=== PATIENT | male | born 1980 | race Caucasian/White ===

== ENCOUNTER 2024-06-11 08:13 | Inpatient (IN) | payer OTHER, SELFPAY ==
[2024-06-11] VITALS (17 sets, daily range): BP systolic 83–149; BP diastolic 39–82; PULSE 100–129; RESP 11–18; TEMP 36.8–38.6; O2SAT 92–100; BMI 33.0; BMI 33.1
--- NOTE | 2024-06-11 | ECG_ITS ---
Test Reason : TACHYCARDIA Blood Pressure : / mmHG Vent. Rate : 118 BPM Atrial Rate : 118 BPM P-R Int : 150 ms QRS Dur : 078 ms QT Int : 314 ms P-R-T Axes : 040 042 028 degrees QTc Int : 440 ms Sinus tachycardia Otherwise normal ECG When compared with ECG of 03-JUN-2019 03:25, No significant change was found Referred By: Dolores Talbert Electronically Signed By:LUKAS VALERA MD
--- NOTE | ~2024-06-11 | CT_ITS ---
EXAMINATION: CT HEAD AND FACIAL BONES WITHOUT CONTRAST CLINICAL INFORMATION: Fall and head injury COMPARISON: None TECHNIQUE: Contiguous axial imaging was performed from the skull base to vertex and facial bones without intravenous administration of contrast. This CT examination was performed using dose optimization techniques as appropriate, variously including the following: *Automated exposure control *Adjustment of mA and/or kV according to patient size (this includes techniques or standardized protocols for targeted exams where dose is matched to indication/reason for exam; i.e. extremities or head) *Use of iterative reconstruction technique DLP: 823.37 mGy-cm (CT Head) 366.31 mGy-cm (CT Facial Bones) FINDINGS: There is no evidence of acute intracranial hemorrhage or territorial infarction. No abnormal mass effect or midline shift is seen. Heard to white matter differentiation is well preserved. No extra-axial fluid collections are identified. The ventricles are normal in size. There is no abnormal attenuation within the brain parenchyma.. The osseous structures and soft tissues are normal. The paranasal sinuses are well-aerated. No air-fluid levels are seen. There is slight leftward deviation of the nasal septum. The ostiomeatal complexes are clear. The lamina papyracea are intact. The ethmoid roofs are symmetric. The carotid canals are normally covered by bone. No maxillary periapical disease is seen. The mastoid air cells and visualized middle ear cavities are well-aerated. The orbits are normal. The TMJs are unremarkable. CT/CT cervical spine wo IV con IMPRESSION: 1. No acute intracranial pathology. 2. No acute visible fracture or dislocation. EXAMINATION: Noncontrast CT scan of the cervical spine. INDICATION: Fall COMPARISON: None. TECHNIQUE: Helical, multidetector axial images were obtained from the occiput to the upper thorax. Coronal and sagittal reformats of the cervical spine were provided for interpretation. DLP: 423.55 mGy-cm FINDINGS: No acute fractures or dislocations of the cervical spine are seen. Straightening of the normal cervical curvature. Multilevel degenerative changes. Anatomic alignment and positioning of the vertebral bodies and posterior elements is noted. The atlantoaxial joint and craniovertebral articulations are normal without evidence of subluxation. There is no prevertebral soft tissue swelling. The visualized portions of the lung apices and mediastinum are unremarkable. Radiopaque surgical material right lower neck and region of the thyroid. IMPRESSION: 1. No acute visible fracture or dislocation. 2. Straightening of the normal cervical curvature. 3. Multilevel degenerative changes. Electronically signed by: Augusta Roman MD 06/11/2024 09:47 AM [facility]
--- NOTE | ~2024-06-11 | CT_ITS ---
EXAMINATION: CT ANGIOGRAM CHEST CLINICAL INFORMATION: Syncope. COMPARISON: None available. TECHNIQUE: Multiple axial images were obtained through the chest after the administration of 65 mL of Omnipaque 350 intravenous contrast without reported immediate complications. Extensive vascular post-processing including two-dimensional and three-dimensional reformatted images were created and reviewed on an independent workstation. This CT examination was performed using dose optimization techniques as appropriate, variously including the following: *Automated exposure control *Adjustment of mA and/or kV according to patient size (this includes techniques or standardized protocols for targeted exams where dose is matched to indication/reason for exam; i.e. extremities or head) *Use of iterative reconstruction technique DLP: 354 mGy-cm FINDINGS: No intraluminal filling defects within the main pulmonary artery or its main branches. No aneurysm or dissection, thoracic aorta. Bilateral multifocal patchy and confluent pulmonary groundglass, both lower lobes and lingula. No pleural effusion. No pneumothorax. No bronchiectasis. No honeycombing. Prominent mediastinal lymph nodes. No pericardial effusion. Gynecomastia, bilaterally. No acute fracture or listhesis in the axial skeleton. No lytic or blastic lesions. CT/CT angio chest PE protocol IMPRESSION: Multifocal pneumonia. No acute pulmonary artery emboli. Gynecomastia, bilaterally. Fleischner guidelines were followed. Electronically signed by: Reynaldo Aguero MD 06/11/2024 02:23 PM [facility]
--- NOTE | ~2024-06-11 | XR_ITS ---
EXAMINATION: XR CHEST CLINICAL INFORMATION: Chest pain after trauma COMPARISON: 11/03/2018 TECHNIQUE: 2 views of the chest were obtained. FINDINGS: Elevated left hemidiaphragm with pleural reaction is stable. There is a minor left basilar infiltrate which could reflect an early pneumonia. Lungs otherwise clear. Heart size normal with normal caliber pulmonary vessels. XR/XR chest 2V IMPRESSION: Minor left basilar opacity which could reflect an early pneumonia. Other chronic changes at the left base noted. Electronically signed by: Zen Paul MD 06/11/2024 09:51 AM [facility]
--- NOTE | 2024-06-11 08:35 | ED_ITS ---
HPI - General Adult General Chief complaint: Syncope Stated complaint: Passed out @ work Time Seen by Provider: 06/11/24 08:34 Source: patient Mode of arrival: ambulatory Limitations: no limitations History of Present Illness ED Provider: Dolores Talbert PA-C HPI narrative: 43-year-old male with a PMH of PE, thyroid CA S/p total thyroidectomy and radiation in 2021, on levothyroxine 200 mcg, presents to the ED today with a 4 day history of productive cough, fevers, chills, and multiple syncopal episodes. Today while he was at work he had 2 syncopal episodes. The first syncopal episode he struck his nose on a desk and the second episode he fell to the ground while he was walking. + HS, + LOC. He states that he felt dizzy prior to both episodes. Patient endorses a productive cough with green sputum. He has been feeling progressively more weak and congestion over the past 4 days. His fiance was diagnosed with pneumonia 2 weeks ago and she has completed her course of antibiotics. Denies N/V, abd pain, SOB, or chest pain. Related Data Allergies Allergy/AdvReac Type Severity Reaction Status Date / Time No Known Allergies Allergy Verified 06/11/24 08:24 [No Known Allergies*] Review of Systems 2 Constitutional: Constitutional: Reports chills, Reports fatigue, Reports fever(s), Denies night sweats and Reports weakness Eyes: Eyes: Reports no additional eye complaints, Denies blurry vision, Denies change in vision, Denies diplopia, Denies eye discharge, Denies loss of vision and Denies eye pain ENT: Reports dizziness, Denies nasal congestion and Denies sore throat Cardiovascular: Cardiovascular: Denies chest pain, Reports syncope, Reports lightheadedness and Reports Loss of Consciousness Respiratory: Respiratory: Reports change in phlegm color (green), Reports cough and Denies wheezing Gastrointestinal: Gastrointestinal: Reports no additional gastrointestinal complaints, Denies abdominal pain, Denies melena, Denies hematochezia, Denies change in bowel habits and Denies change in stool character Genitourinary: Genitourinary: Reports no additional male genitourinary complaints, Denies hematuria, Denies oliguria, Denies difficulty urinating, Denies dysuria, Denies urinary frequency, Denies urinary hesitancy, Denies urinary incontinence and Denies urinary urgency Musculoskeletal: Musculoskeletal: Reports no additional musculoskeletal complaints, Denies numbness and Denies tingling Neurologic: Reports dizziness, Reports syncope, Denies loss of vision, Denies numbness, Denies tingling and Reports weakness Psychiatric: Psychiatric: Reports no additional psychiatric complaints Endocrine: Endocrine: Reports no additional endocrine complaints and Reports fatigue Hematologic/Lymphatic: Hematologic/Lymphatic: Reports no additional hematologic/lymphatic complaints Allergic/Immunologic: Allergic/Immunologic: Reports no additional allergic/immunologic complaints and Denies wheezing PMFSH Past Medical History Attestation statement: The following information was validated with the patient. Source: old records reviewed and nursing notes reviewed Medical History MIGUEL on CPAP MIGUEL (obstructive sleep apnea) Pulmonary embolism Asthma Surgical History History of thyroidectomy Social History Social History Smoked in Last 30 Days: No Use of substances other than those prescribed or required for medical reasons: No Advance Directives: No Advance Directives Information Provided: Yes Physical Exam ED Vital Signs: Vital Signs - 24 hr 06/11/24 08:19 06/11/24 09:03 06/11/24 09:41 Temperature 101.4 F H 101.2 F H Pulse Rate 127 H 112 H Respiratory Rate 18 15 Blood Pressure 119/68 109/63 Pulse Oximetry 100 92 94 Oxygen Delivery Method Room Air Room Air Room Air 06/11/24 10:08 06/11/24 10:23 06/11/24 10:38 Temperature Pulse Rate 103 H 105 H 102 H Respiratory Rate 12 12 Blood Pressure 98/48 L 83/46 L 95/39 L Pulse Oximetry 92 92 92 Oxygen Delivery Method Room Air Room Air Room Air 06/11/24 10:51 06/11/24 11:43 06/11/24 12:09 Temperature 99 F 98.6 F 98.4 F Pulse Rate 107 H 103 H Respiratory Rate 11 L 18 16 Blood Pressure 113/68 100/61 Pulse Oximetry 94 97 94 Oxygen Delivery Method Room Air Room Air Room Air BMI result Body Mass Index 33.0 Const General: cooperative, no acute distress, alert and awake Nutritional Appearance: well nourished Orientation/consciousness: patient oriented x3 Limitations: no limitations HENMT Head: Yes normal to inspection and Yes atraumatic Ears: hearing grossly normal bilaterally and external ears normal General nose exam: Normal external nose present, no nasal discharge noted and no epistaxis Face and sinus: Yes normal facial exam, No abrasion and No laceration Mouth: Normal oral and palatal mucosa present, no drooling and no muffled voice Eyes General: appearance normal, both eyes and all related structures Periorbital: periorbital findings normal Eyelids: Yes eyelids normal Conjunctivae: conjunctivae normal Pupils: Equal, round and reactive pupils present EOM: EOMs intact bilaterally Neck Neck: Yes normal visual inspection, Yes full ROM and Yes no lymphadenopathy Chest Chest palpation & inspection: normal inspection of the chest Resp Effort & Inspection: normal respiratory effort, able to speak in complete sentences and Actively coughing Cardio Rate: tachycardic Rhythm: regular rhythm GI Inspection: Yes normal to inspection Neuro General: patient oriented x3 and moves all extremities Cranial nerves: Yes Equal, round and reactive pupils present Cognition (Neuro): normal cognition Extrem General: Yes normal to inspection, Yes full ROM and Yes capillary refill normal Psych Appearance: grossly normal Mental Status: mental status grossly normal Affect: normal affect Attitude: cooperative Thought process: Normal thought process present Thought content: Normal thought content present Insight: Good insight present (Psych) Medications Administered Discontinued Medications Generic Name Dose Route Start Last Admin Trade Name Adali PRN Reason Stop Dose Admin Ceftriaxone Sodium 1 gm 06/11/24 08:35 06/11/24 08:56 Ceftriaxone Sodium 1 Gm Vial IVPUSH 06/11/24 08:36 1 gm ONCE ONE Administration Acetaminophen 1,000 mg in 100 mls @ 400 mls/hr 06/11/24 08:36 06/11/24 09:10 Ofirmev IV 06/11/24 08:50 Infused ONCE ONE Infusion Sodium Chloride 1,000 mls @ 999 mls/hr 06/11/24 10:15 06/11/24 11:30 Ns IV 06/11/24 11:15 Infused .Q1H1M SWAPNIL Infusion Iohexol 100 ml 06/11/24 13:01 06/11/24 13:02 Iohexol 350 Mg/Ml 100 Ml Infus..Btl IV 06/11/24 13:02 65 ml ONCE ONE Administration Medical Decision Making Medical Decision Making MDM Narrative: Patient is a 43 year old assigned male at with a history of thyroid cancer s/p thyroidectomy and pulmonary emboli not on anticoagulation medication presenting to the emergency department today with fever, chills, cough, and multiple syncopal episodes. Patient's physical exam was as noted in the physical exam portion of this note. Patient was initially febrile and tachycardic with a few brief episodes of hypotension. Patient's blood work showed an elevated WBC count of 14.7 and an elevated d dimer of 505 but were otherwise unremarkable. Patient's EKG was unremarkable. Patient's chest x-ray showed evidence of pneumonia. Patient's CT PE study (hx and elevated dimer) showed a multifocal pneumonia. Patient's CT head, face, and c-spine showed no acute process. Given the patient's presentation, there was suspicion of sepsis at 0835. Patient was given IV fluids, Tylenol, and antibiotics. I spoke to the hospitalist team who agreed to admission. I explained my physical exam findings as well as all test results to the patient and the patient's partner. I answered all questions asked by the patient and the patient's partner. Patient and the patient's partner verbalized agreement and understanding with this treatment plan andadmission. Differential Diagnosis Differential Diagnoses: The differential diagnosis associated with the presentation includes Pneumonia Syncope Sepsis Admission/Observation Consideration of admission/observation: Escalation of care including admission/observation considered Patient admitted Consult Healthcare Provider Management of the patient was discussed with: Hospitalist (agreed to admission as noted in the MDM Rationale portion of this note.) Lab Data [facility] Lab Attestation statement: I reviewed the patient's lab results. My interpretation of these results are in the MDM Rationale portion of this note. 06/11/24 08:48 06/11/24 08:48 Labs: Lab Results 06/11/24 06/11/24 06/11/24 Range/Units 08:19 08:48 08:53 WBC 14.7 H (4.8-10.8) X10*3/uL RBC 4.34 L (4.60-5.80) X10*6/uL Hgb 12.1 L (14.0-18.0) g/dl Hct 36.8 L (42.0-52.0) % MCV 84.8 (80.0-98.0) fL MCH 27.9 (27.0-33.0) pg MCHC 32.9 (31.0-36.0) g/dl RDW 12.6 (11.0-16.0) % Plt Count 321 (160-400) X10*3/uL MPV 8.7 L (9.4-12.4) fL Immature Gran % (Auto) 0.5 H (0.0-0.4) % Neut % (Auto) 84.4 H (45-73) % Lymph % (Auto) 7.9 L (20-40) % Evangeline % (Auto) 6.6 (2-11) % Eos % (Auto) 0.2 (0-4) % Baso % (Auto) 0.4 (0-2) % Lymph # (Auto) 1.2 (1.2-4.9) X10*3/uL Evangeline # (Auto) 1.0 (0.1-1.2) X10*3/uL Eos # (Auto) 0.0 (0.0-0.4) X10*3/uL Baso # (Auto) 0.1 (0.0-0.2) X10*3/uL Abs Immat Gran (auto) 0.08 H (0.00-0.03) X10*3/uL Absolute Neuts (auto) 12.4 H (2.0-8.3) x10*3/uL Absolute Nucleated RBC 0.000 (0.0-0.012) X10*3/uL Nucleated RBC % (auto) 0.0 (0.0-0.2) /100WBC D-Dimer High Sensitivty NG/ML VBG pH 7.41 (7.32-7.43) VBG pCO2 40 mmHg VBG pO2 31 mmHg VBG HCO3 26 (22-26) mmol/L VBG O2 Saturation 59.0 % VBG Base Excess 2.0 mmol/L Sodium 134 L (135-145) mmol/L Potassium 3.3 (3.3-5.1) mmol/L Chloride 98 (96-108) mmol/L Carbon Dioxide 25 (22-29) mmol/L Anion Gap 14 (12-20) BUN 10 (9-16) mg/dL Creatinine 1.29 (0.5-1.4) mg/dL Estim Creat Clear Calc 91.0 Estimated GFR > 60 POC Glucose 99 (60-115) mg/dL Random Glucose 121 H (60-115) mg/dL Lactic Acid 1.4 (0.5-2.0) mmol/L Calcium 9.5 (8.4-10.2) mg/dL Total Bilirubin 0.6 (0.0-1.0) mg/dL AST 58 H (5-37) U/L ALT 25 (0-40) U/L Alkaline Phosphatase 81 (39-117) U/L Total Protein 9.7 H (6.5-8.0) g/dL Albumin 4.0 (3.5-5.0) g/dL TSH 0.11 L (0.32-4.0) uIU/mL Free T4 1.41 (0.71-1.85) ng/dL Influenza Type A (PCR) NEGATIVE (Negative) Influenza Type B (PCR) NEGATIVE (Negative) RSV RNA Qual (PCR) NEGATIVE (Negative) SARS-CoV-2 RNA (RT-PCR) NEGATIVE (Negative) 06/11/24 Range/Units 10:49 WBC (4.8-10.8) X10*3/uL RBC (4.60-5.80) X10*6/uL Hgb (14.0-18.0) g/dl Hct (42.0-52.0) % MCV (80.0-98.0) fL MCH (27.0-33.0) pg MCHC (31.0-36.0) g/dl RDW (11.0-16.0) % Plt Count (160-400) X10*3/uL MPV (9.4-12.4) fL Immature Gran % (Auto) (0.0-0.4) % Neut % (Auto) (45-73) % Lymph % (Auto) (20-40) % Evangeline % (Auto) (2-11) % Eos % (Auto) (0-4) % Baso % (Auto) (0-2) % Lymph # (Auto) (1.2-4.9) X10*3/uL Evangeline # (Auto) (0.1-1.2) X10*3/uL Eos # (Auto) (0.0-0.4) X10*3/uL Baso # (Auto) (0.0-0.2) X10*3/uL Abs Immat Gran (auto) (0.00-0.03) X10*3/uL Absolute Neuts (auto) (2.0-8.3) x10*3/uL Absolute Nucleated RBC (0.0-0.012) X10*3/uL Nucleated RBC % (auto) (0.0-0.2) /100WBC D-Dimer High Sensitivty 505 NG/ML VBG pH (7.32-7.43) VBG pCO2 mmHg VBG pO2 mmHg VBG HCO3 (22-26) mmol/L VBG O2 Saturation % VBG Base Excess mmol/L Sodium (135-145) mmol/L Potassium (3.3-5.1) mmol/L Chloride (96-108) mmol/L Carbon Dioxide (22-29) mmol/L Anion Gap (12-20) BUN (9-16) mg/dL Creatinine (0.5-1.4) mg/dL Estim Creat Clear Calc Estimated GFR POC Glucose (60-115) mg/dL Random Glucose (60-115) mg/dL Lactic Acid (0.5-2.0) mmol/L Calcium (8.4-10.2) mg/dL Total Bilirubin (0.0-1.0) mg/dL AST (5-37) U/L ALT (0-40) U/L Alkaline Phosphatase (39-117) U/L Total Protein (6.5-8.0) g/dL Albumin (3.5-5.0) g/dL TSH (0.32-4.0) uIU/mL Free T4 (0.71-1.85) ng/dL Influenza Type A (PCR) (Negative) Influenza Type B (PCR) (Negative) RSV RNA Qual (PCR) (Negative) SARS-CoV-2 RNA (RT-PCR) (Negative) Independent Interpretation I performed an independent interpretation of an: EKG, Plain X-Ray and CT Scan Interpretation: My interpretation is in agreement with the radiologist's impression of these imaging studies. L EXAMINATION: CT ANGIOGRAM CHEST CLINICAL INFORMATION: Syncope. COMPARISON: None available. TECHNIQUE: Multiple axial images were obtained through the chest after the administration of 65 mL of Omnipaque 350 intravenous contrast without reported immediate complications. Extensive vascular post-processing including two-dimensional and three-dimensional reformatted images were created and reviewed on an independent workstation. This CT examination was performed using dose optimization techniques as appropriate, variously including the following: *Automated exposure control *Adjustment of mA and/or kV according to patient size (this includes techniques or standardized protocols for targeted exams where dose is matched to indication/reason for exam; i.e. extremities or head) *Use of iterative reconstruction technique DLP: 354 mGy-cm FINDINGS: No intraluminal filling defects within the main pulmonary artery or its main branches. No aneurysm or dissection, thoracic aorta. Bilateral multifocal patchy and confluent pulmonary groundglass, both lower lobes and lingula. No pleural effusion. No pneumothorax. No bronchiectasis. No honeycombing. Prominent mediastinal lymph nodes. No pericardial effusion. Gynecomastia, bilaterally. No acute fracture or listhesis in the axial skeleton. No lytic or blastic lesions. CT/CT angio chest PE protocol IMPRESSION: Multifocal pneumonia. No acute pulmonary artery emboli. Gynecomastia, bilaterally. Fleischner guidelines were followed. Electronically signed by: Reynaldo Aguero MD 06/11/2024 02:23 PM [facility] Dictated By: Reynaldo Desai MD Signed By: Electronically signed by Reynaldo Gonzalez MD 06/11/24 1423 EXAMINATION: CT HEAD AND FACIAL BONES WITHOUT CONTRAST CLINICAL INFORMATION: Fall and head injury COMPARISON: None TECHNIQUE: Contiguous axial imaging was performed from the skull base to vertex and facial bones without intravenous administration of contrast. This CT examination was performed using dose optimization techniques as appropriate, variously including the following: *Automated exposure control *Adjustment of mA and/or kV according to patient size (this includes techniques or standardized protocols for targeted exams where dose is matched to indication/reason for exam; i.e. extremities or head) *Use of iterative reconstruction technique DLP: 823.37 mGy-cm (CT Head) 366.31 mGy-cm (CT Facial Bones) FINDINGS: There is no evidence of acute intracranial hemorrhage or territorial infarction. No abnormal mass effect or midline shift is seen. Heard to white matter differentiation is well preserved. No extra-axial fluid collections are identified. The ventricles are normal in size. There is no abnormal attenuation within the brain parenchyma.. The osseous structures and soft tissues are normal. The paranasal sinuses are well-aerated. No air-fluid levels are seen. There is slight leftward deviation of the nasal septum. The ostiomeatal complexes are clear. The lamina papyracea are intact. The ethmoid roofs are symmetric. The carotid canals are normally covered by bone. No maxillary periapical disease is seen. The mastoid air cells and visualized middle ear cavities are well-aerated. The orbits are normal. The TMJs are unremarkable. CT/CT head/brain wo IV con IMPRESSION: 1. No acute intracranial pathology. 2. No acute visible fracture or dislocation. EXAMINATION: Noncontrast CT scan of the cervical spine. INDICATION: Fall COMPARISON: None. TECHNIQUE: Helical, multidetector axial images were obtained from the occiput to the upper thorax. Coronal and sagittal reformats of the cervical spine were provided for interpretation. DLP: 423.55 mGy-cm FINDINGS: No acute fractures or dislocations of the cervical spine are seen. Straightening of the normal cervical curvature. Multilevel degenerative changes. Anatomic alignment and positioning of the vertebral bodies and posterior elements is noted. The atlantoaxial joint and craniovertebral articulations are normal without evidence of subluxation. There is no prevertebral soft tissue swelling. The visualized portions of the lung apices and mediastinum are unremarkable. Radiopaque surgical material right lower neck and region of the thyroid. IMPRESSION: 1. No acute visible fracture or dislocation. 2. Straightening of the normal cervical curvature. 3. Multilevel degenerative changes. Electronically signed by: Augusta Roman MD 06/11/2024 09:47 AM EST Dictated By: Augusta Roman MD Signed By: Electronically signed by Augusta Roman MD 06/11/24 0947 EXAMINATION: XR CHEST CLINICAL INFORMATION: Chest pain after trauma COMPARISON: 11/03/2018 TECHNIQUE: 2 views of the chest were obtained. FINDINGS: Elevated left hemidiaphragm with pleural reaction is stable. There is a minor left basilar infiltrate which could reflect an early pneumonia. Lungs otherwise clear. Heart size normal with normal caliber pulmonary vessels. XR/XR chest 2V IMPRESSION: Minor left basilar opacity which could reflect an early pneumonia. Other chronic changes at the left base noted. Electronically signed by: Zen Paul MD 06/11/2024 09:51 AM EST Dictated By: Zen Paul MD Signed By: Electronically signed by Zen Paul MD 06/11/24 0951 Vent. Rate: 118 BPM Atrial Rate: 118 BPM P-R Int: 150 ms QRS Dur: 078 ms QT Int: 314 ms P-R-T Axes: 040 042 028 degrees QTc Int: 440 ms Sinus tachycardia Otherwise normal ECG When compared with ECG of 03-JUN-2019 03:25, No significant change was found DD/ [id number] Radiology Impression Discussion of test interpretation with radiology: I have reviewed the radiologist's reading. Independent Historian Clinical information obtained from an independent historian. History obtained from or confirmed by: Other (patient's partner provided additional history and confirmed the history provided by the patient) Critical Care Time Critical Care Time Critical Care Time: Yes Total Critical Care Time: 48 Attestation: I spent 48 minutes of Critical Care Time with this patient. This does not include time spent on separately reported billable procedures. Discharge Plan Discharge Clinical Impression: Pneumonia, Syncope Patient Disposition: Admitted As Inpatient Print Language: Omani
[2024-06-11 08:53] LABS: MANUAL DIFF FLAG NO
[2024-06-11] MEDS: Acetaminophen 1,000 MG/100 ML PIGGYBACK 400 MG IV (08:55)
[2024-06-11 08:56] LABS: Venous Blood Gas Refer to POC result
[2024-06-11] MEDS: cefTRIAXone sodium 1 GM VIAL IVPUSH (08:56)
[2024-06-11 08:57] LABS: VBG HCO3 26 mmol/L (22-26); VBG pCO2 40 mmHg; VBG pH 7.41 (7.32-7.43); VBG pO2 31 mmHg
[2024-06-11 08:59] LABS: Basophils Absolute Auto 0.1 X10*3/uL (0.0-0.2); Basophils Percent Auto 0.4 % (0-2); Eosinophils Percent Auto 0.2 % (0-4); Hematocrit 36.8 % (42.0-52.0); Hemoglobin 12.1 g/dl (14.0-18.0); Imm Gran Abs Auto 0.08 X10*3/uL (0.00-0.03); Imm Gran Pct Auto 0.5 % (0.0-0.4); Lymphocytes Absolute Auto 1.2 X10*3/uL (1.2-4.9); Lymphocytes Percent Auto 7.9 % (20-40); Mean Corpuscular HGB Conc 32.9 g/dl (31.0-36.0); Mean Corpuscular Hemoglobin 27.9 pg (27.0-33.0); Mean Corpuscular Volume 84.8 fL (80.0-98.0); Mean Platelet Volume 8.7 fL (9.4-12.4); Monocytes Percent Auto 6.6 % (2-11); Neutrophils Absolute Auto 12.4 x10*3/uL (2.0-8.3); Neutrophils Percent Auto 84.4 % (45-73); Platelet Count 321 X10*3/uL (160-400); Red Blood Count 4.34 X10*6/uL (4.60-5.80); Red Cell Distribution Width 12.6 % (11.0-16.0); White Blood Count 14.7 X10*3/uL (4.8-10.8)
[2024-06-11 09:22] LABS: Lactic Acid 1.4 mmol/L (0.5-2.0)
[2024-06-11 09:26] LABS: Alanine Aminotransferase 25 U/L (0-40); Alkaline Phosphatase 81 U/L (39-117); Anion Gap 14 (12-20); Aspartate Amino Transferase 58 U/L (5-37); Bilirubin Total 0.6 mg/dL (0.0-1.0); Blood Urea Nitrogen 10 mg/dL (9-16); Calcium 9.5 mg/dL (8.4-10.2); Carbon Dioxide 25 mmol/L (22-29); Chloride 98 mmol/L (96-108); Estimated Glomerular Filt Rate > 60; Glucose Random 121 mg/dL (60-115); Potassium 3.3 mmol/L (3.3-5.1); Sodium 134 mmol/L (135-145); Total Protein 9.7 g/dL (6.5-8.0)
[2024-06-11 09:43] LABS: Influenza A PCR NEGATIVE (Negative); Influenza B PCR NEGATIVE (Negative); Resp Syncy Virus RNA Qual PCR NEGATIVE (Negative); SARS COV2 PCR INHOUSE NEGATIVE (Negative)
[2024-06-11 09:45] LABS: TSH reflex Free T4 0.11 uIU/mL (0.32-4.0)
--- NOTE | 2024-06-11 09:53 | PC.NURSE ---
patient a&ox3, ivs inserted, labs drawn/blood cultures drawn, iv abx hung per order, pt medicated with IV acetaminophen per order, ekg performed per order, pt to radiology, family at bedside, call nayak within reach, will continue to monitor
--- NOTE | 2024-06-11 09:59 | MHC.EDTECH ---
Hourly round and vitals completed,EKG was done and read by the ED provider. Patient is resting quietly in the bed within call nayak in reach.
[2024-06-11] MEDS: 0.9 % Sodium Chloride 1,000 ML 999 ML IV (10:11)
[2024-06-11 11:01] LABS: D Dimer High Sensitivity 505 NG/ML
[2024-06-11 11:15] LABS: Free T4 (Free Thyroxine) 1.41 ng/dL (0.71-1.85)
--- NOTE | 2024-06-11 11:45 | PC.NURSE ---
pt a&ox3, vss, pt now afebrile, to go to ct scan.
[2024-06-11] MEDS: iohexoL 350 MG/ML 100 ML INFUS..BTL IV (13:02)
[2024-06-11 13:34] LABS: Glucose, Whole Blood 99 mg/dL (60-115)
--- NOTE | 2024-06-11 15:26 | P.HPHOSP_ITS ---
History of Present Illness Date of Service: 06/11/24 Chief Complaint: Syncope 43-year-old man presented to the ER with 4 days of productive cough, fever, chills and multiple syncopal episodes. Apparently after a syncopal episode he struck his nose on a desk and the 2nd episode he fell to the ground while he was walking. Patient reports that he felt dizzy prior to both syncopal episodes. His significant other had a pneumonia diagnosed 2 weeks ago and completed their course of antibiotic. The patient did note that he was having more congestion over the last 4 days. The patient was noted to have a fever, tachycardia, leukocytosis, normal lactic acid. Chest CTA showed multifocal pneumonia with no pulmonary emboli. Head CT, cervical spine CT, face CT all negative for acute fracture dislocation. Patient received a dose of IV Rocephin, Tylenol, 1 L of IV fluid. He will be admitted for further management and treatment of sepsis secondary to pneumonia. Review of Systems 2 Review of Systems: Denies any recent fever chills or decrease in appetite respiratory denies any shortness of breath or cough cardiovascular denied chest pain gastrointestinal denies any dysphagia abdominal pain nausea vomiting or diarrhea genitourinary denies any dysuria frequency or hematuria musculoskeletal denies any joint pain or swelling neuropsych denies any weakness or seizures all other systems reviewed are negative [facility] Medical History MIGUEL on CPAP MIGUEL (obstructive sleep apnea) Pulmonary embolism Asthma Surgical History History of thyroidectomy Social History Household Members: Significant Other Housing: House Do you presently have visiting nurse or other home services: No Patient Tobacco Use Status: Never used Tobacco Smoked in Last 30 Days: No Use of substances other than those prescribed or required for medical reasons: Yes Substance Use Type: Painkillers Currently Displaying Signs/Symptoms of Drug Intoxication Withdrawal: No Any prior treatment program specific to substance use: Yes (no use for 12 yrs) Have you been hit, kicked, punched, or otherwise hurt by someone within the past year? If so, by whom?: No Do you feel safe in your current relationship?: Yes Is there a partner from a previous relationship who is making you feel unsafe now?: No Are you made to feel afraid or neglected: No Advance Directives: No Advance Directives Information Provided: Yes Do you have a plan to hurt others: No Plan Recently lost weight without trying: No How much weight loss: Not applicable Eating poorly because of decreased appetite: No Nutrition screen score: 0 Nutrition Risks: No Nutritional Risk Poor oral hygiene: No service: No Meds Allergies Allergy/AdvReac Type Severity Reaction Status Date / Time No Known Allergies Allergy Verified 06/11/24 08:24 [No Known Allergies*] Home Medications ?Medication ?Instructions ?Recorded ?Confirmed ?Last Taken ?Type buprenorphine 8 mg-naloxone 2 mg 1 film sublingual TID 06/11/24 06/11/24 06/11/24 History sublingual film levothyroxine 150 mcg tablet 150 mcg PO DAILY@0600 06/11/24 06/11/24 06/11/24 History Physical Exam 2 Vital Signs and Narrative: Vital Signs: Last Vital Signs Temp 98.4 F 06/11/24 12:09 Pulse 103 H 06/11/24 12:09 Resp 16 06/11/24 12:09 BP 100/61 06/11/24 12:09 Pulse Ox 94 06/11/24 12:09 O2 Del Method Room Air 06/11/24 12:09 BMI result Body Mass Index 33.0 Appearing in no acute distress head is normocephalic atraumatic eyes pupils are PERRLA sclera is anicteric mouth throat mucous membranes are intact and moist neck is supple no lymphadenopathy, no JVD noted lung sounds are clear to auscultation heart regular rate rhythm, clear S1, S2 positive bowel sounds, abdomen is soft, nontender neuro patient is alert x3, no focal deficits Results Labs 06/12/24 06:12 06/12/24 06:12 Labs: Laboratory Results - last 24 hr 06/11/24 06/11/24 06/11/24 08:19 08:48 08:53 MCV 84.8 MCH 27.9 MCHC 32.9 RDW 12.6 Plt Count 321 MPV 8.7 L Immature Gran % (Auto) 0.5 H Neut % (Auto) 84.4 H Lymph % (Auto) 7.9 L [place] % (Auto) 6.6 Eos % (Auto) 0.2 Baso % (Auto) 0.4 Lymph # (Auto) 1.2 [place] # (Auto) 1.0 Eos # (Auto) 0.0 Baso # (Auto) 0.1 Abs Immat Gran (auto) 0.08 H Absolute Neuts (auto) 12.4 H Absolute Nucleated RBC 0.000 Nucleated RBC % (auto) 0.0 D-Dimer High Sensitivty VBG pH 7.41 VBG pCO2 40 VBG pO2 31 VBG HCO3 26 VBG O2 Saturation 59.0 VBG Base Excess 2.0 Anion Gap 14 Estim Creat Clear Calc 91.0 Estimated GFR > 60 POC Glucose 99 Random Glucose 121 H Lactic Acid 1.4 Calcium 9.5 Total Bilirubin 0.6 AST 58 H ALT 25 Alkaline Phosphatase 81 Total Protein 9.7 H Albumin 4.0 TSH 0.11 L Free T4 1.41 Influenza Type A (PCR) NEGATIVE Influenza Type B (PCR) NEGATIVE RSV RNA Qual (PCR) NEGATIVE SARS-CoV-2 RNA (RT-PCR) NEGATIVE 06/11/24 10:49 MCV MCH MCHC RDW Plt Count MPV Immature Gran % (Auto) Neut % (Auto) Lymph % (Auto) [place] % (Auto) Eos % (Auto) Baso % (Auto) Lymph # (Auto) [place] # (Auto) Eos # (Auto) Baso # (Auto) Abs Immat Gran (auto) Absolute Neuts (auto) Absolute Nucleated RBC Nucleated RBC % (auto) D-Dimer High Sensitivty 505 VBG pH VBG pCO2 VBG pO2 VBG HCO3 VBG O2 Saturation VBG Base Excess Anion Gap Estim Creat Clear Calc Estimated GFR POC Glucose Random Glucose Lactic Acid Calcium Total Bilirubin AST ALT Alkaline Phosphatase Total Protein Albumin TSH Free T4 Influenza Type A (PCR) Influenza Type B (PCR) RSV RNA Qual (PCR) SARS-CoV-2 RNA (RT-PCR) Imaging Radiologist's Impressions: Impressions Chest X-Ray 06/11/24 08:26 IMPRESSION: Minor left basilar opacity which could reflect an early pneumonia. Other chronic changes at the left base noted. Electronically signed by: Zen Paul MD 06/11/2024 09:51 AM [facility] Face CT 06/11/24 08:35 IMPRESSION: 1. No acute intracranial pathology. 2. No acute visible fracture or dislocation. EXAMINATION: Noncontrast CT scan of the cervical spine. INDICATION: Fall COMPARISON: None. TECHNIQUE: Helical, multidetector axial images were obtained from the occiput to the upper thorax. Coronal and sagittal reformats of the cervical spine were provided for interpretation. DLP: 423.55 mGy-cm FINDINGS: No acute fractures or dislocations of the cervical spine are seen. Straightening of the normal cervical curvature. Multilevel degenerative changes. Anatomic alignment and positioning of the vertebral bodies and posterior elements is noted. The atlantoaxial joint and craniovertebral articulations are normal without evidence of subluxation. There is no prevertebral soft tissue swelling. The visualized portions of the lung apices and mediastinum are unremarkable. Radiopaque surgical material right lower neck and region of the thyroid. IMPRESSION: 1. No acute visible fracture or dislocation. 2. Straightening of the normal cervical curvature. 3. Multilevel degenerative changes. Electronically signed by: Augusta Roman MD 06/11/2024 09:47 AM EST RP Cervical Spine CT 06/11/24 09:14 IMPRESSION: 1. No acute intracranial pathology. 2. No acute visible fracture or dislocation. EXAMINATION: Noncontrast CT scan of the cervical spine. INDICATION: Fall COMPARISON: None. TECHNIQUE: Helical, multidetector axial images were obtained from the occiput to the upper thorax. Coronal and sagittal reformats of the cervical spine were provided for interpretation. DLP: 423.55 mGy-cm FINDINGS: No acute fractures or dislocations of the cervical spine are seen. Straightening of the normal cervical curvature. Multilevel degenerative changes. Anatomic alignment and positioning of the vertebral bodies and posterior elements is noted. The atlantoaxial joint and craniovertebral articulations are normal without evidence of subluxation. There is no prevertebral soft tissue swelling. The visualized portions of the lung apices and mediastinum are unremarkable. Radiopaque surgical material right lower neck and region of the thyroid. IMPRESSION: 1. No acute visible fracture or dislocation. 2. Straightening of the normal cervical curvature. 3. Multilevel degenerative changes. Electronically signed by: Augusta Roman MD 06/11/2024 09:47 AM EST RP Head CT 06/11/24 09:31 IMPRESSION: 1. No acute intracranial pathology. 2. No acute visible fracture or dislocation. EXAMINATION: Noncontrast CT scan of the cervical spine. INDICATION: Fall COMPARISON: None. TECHNIQUE: Helical, multidetector axial images were obtained from the occiput to the upper thorax. Coronal and sagittal reformats of the cervical spine were provided for interpretation. DLP: 423.55 mGy-cm FINDINGS: No acute fractures or dislocations of the cervical spine are seen. Straightening of the normal cervical curvature. Multilevel degenerative changes. Anatomic alignment and positioning of the vertebral bodies and posterior elements is noted. The atlantoaxial joint and craniovertebral articulations are normal without evidence of subluxation. There is no prevertebral soft tissue swelling. The visualized portions of the lung apices and mediastinum are unremarkable. Radiopaque surgical material right lower neck and region of the thyroid. IMPRESSION: 1. No acute visible fracture or dislocation. 2. Straightening of the normal cervical curvature. 3. Multilevel degenerative changes. Electronically signed by: Augusta Roman MD 06/11/2024 09:47 AM EST RP Chest CTA 06/11/24 11:02 IMPRESSION: Multifocal pneumonia. No acute pulmonary artery emboli. Gynecomastia, bilaterally. Fleischner guidelines were followed. Electronically signed by: Reynaldo Aguero MD 06/11/2024 02:23 PM EST RP Assessment and Plan (1) Pneumonia: Status: Acute Plan 43-year-old man admitted after multiple syncopal episodes at home and found to have sepsis secondary to pneumonia Sepsis secondary to multifocal pneumonia Fever, tachycardia, leukocytosis, normal lactic acid RSV, Flu and covid neg Rocephin and azithromycin Follow blood cultures Supplemental Oxygen to keep oxygen saturation greater than 91% Syncope Possibly related to infection, hypovolemia, hypotension Monitor on telemetry Ambulate with the assist Check orthostatic blood pressures Normocytic anemia No signs of bleeding Stable H&H Elevated D-dimer CTA ruled out pulmonary embolus Likely secondary to infection Obesity class 1. BMI 33.0. Discussed importance of weight management as this may be contributing to worsening of other comorbidities DVT prophylaxis with pneumatic compression boots Full Code Quality Stroke Does the patient have a stroke diagnosis?: No VTE Prior VTE?: No VTE Risk Level:: Medical - moderate - high VTE Device Contraindication: Treatment Not Indicated VTE Drug Contraindication: N/A - Med Ordered
--- NOTE | 2024-06-11 15:40 | PC.NURSE ---
patient a&ox3, environmental monitoring technician intact- sinus tach on monitor- vitals otherwise stable, family at bedside, call nayak within reach, will continue to monitor
--- NOTE | 2024-06-11 16:18 | PHA.MEDREC ---
Pharmacy Consult ? Medication Reconciliation Pharmacy has completed the medication reconciliation. Spoke to patient's (Tarah) to confirm medication list. She said he takes the suboxone as 1 film 3 times a day and he took the morning dose today.
[2024-06-11] MEDS: Azithromycin 500 MG in 0.9 % Sodium Chloride 250 ML 125 MG IV (18:32)
[2024-06-11] MEDS: Heparin Sodium,Porcine 5,000 UNIT/ML VIAL 5000 UNIT SUBCUT (18:33)
[2024-06-11] MEDS: Acetaminophen 325 MG TABLET 650 MG PO (18:35)
--- NOTE | 2024-06-11 18:45 | PC.NURSE ---
pt a&ox3, sinus tach on monitor, rr equal/non labored, pt eating dinner brought him, pt was medicated by float nurse for headache and abx started per order, pt was also positive for orthostats will notify edilia caal hospitalist. call nayak within reach, will continue to monitor
--- NOTE | 2024-06-11 19:21 | PC.NURSE ---
pt concerned that he has MIGUEL and cant wear the cpap because of his nose injury and it being painful, will call respiratory to see if they are able to come up with a different idea while patient is in the hospital.
[2024-06-12] VITALS (12 sets, daily range): BP systolic 107–134; BP diastolic 57–83; PULSE 92–123; RESP 16–20; TEMP 36.2–37.3; O2SAT 93–100
[2024-06-12] MEDS: Acetaminophen 325 MG TABLET 650 MG PO (01:25)
[2024-06-12 06:33] LABS: MANUAL DIFF FLAG NO
[2024-06-12] MEDS: Heparin Sodium,Porcine 5,000 UNIT/ML VIAL 5000 UNIT SUBCUT ×2 (06:41→18:31)
[2024-06-12 07:06] LABS: Basophils Percent Auto 0.2 % (0-2); Eosinophils Absolute Auto 0.1 X10*3/uL (0.0-0.4); Eosinophils Percent Auto 1.3 % (0-4); Hematocrit 31.9 % (42.0-52.0); Hemoglobin 10.8 g/dl (14.0-18.0); Imm Gran Abs Auto 0.04 X10*3/uL (0.00-0.03); Imm Gran Pct Auto 0.5 % (0.0-0.4); Lymphocytes Absolute Auto 1.9 X10*3/uL (1.2-4.9); Lymphocytes Percent Auto 22.1 % (20-40); Mean Corpuscular HGB Conc 33.9 g/dl (31.0-36.0); Mean Corpuscular Hemoglobin 28.1 pg (27.0-33.0); Mean Corpuscular Volume 82.9 fL (80.0-98.0); Monocytes Absolute Auto 0.9 X10*3/uL (0.1-1.2); Monocytes Percent Auto 10.2 % (2-11); Neutrophils Absolute Auto 5.5 x10*3/uL (2.0-8.3); Neutrophils Percent Auto 65.7 % (45-73); Platelet Count 278 X10*3/uL (160-400); Red Blood Count 3.85 X10*6/uL (4.60-5.80); Red Cell Distribution Width 12.7 % (11.0-16.0); White Blood Count 8.4 X10*3/uL (4.8-10.8)
[2024-06-12 07:14] LABS: Alanine Aminotransferase 19 U/L (0-40); Albumin Level 3.4 g/dL (3.5-5.0); Alkaline Phosphatase 63 U/L (39-117); Anion Gap 16 (12-20); Aspartate Amino Transferase 40 U/L (5-37); Bilirubin Total 0.3 mg/dL (0.0-1.0); Blood Urea Nitrogen 9 mg/dL (9-16); Calcium 8.9 mg/dL (8.4-10.2); Carbon Dioxide 22 mmol/L (22-29); Chloride 102 mmol/L (96-108); Creatinine Clr Calc Pharmacy 139.9; Estimated Glomerular Filt Rate > 60; Glucose Random 98 mg/dL (60-115); Potassium 3.7 mmol/L (3.3-5.1); Sodium 136 mmol/L (135-145); Total Protein 7.9 g/dL (6.5-8.0)
[2024-06-12] MEDS: Buprenorphine/Naloxone 8/2 mg FILM 1 FILM SUBLINGUAL ×3 (09:20→21:00)
[2024-06-12] MEDS: cefTRIAXone sodium 1 GM VIAL IVPUSH (09:20)
[2024-06-12] MEDS: 0.9 % Sodium Chloride Flush 3 ML SYRINGE IVFLUSH ×5 (09:21→16:08)
--- NOTE | 2024-06-12 09:25 | MHC.CM.PN ---
EMR REVIEWED, PT W/SYNCOPAL EPISODE/PNA, PT HERE ON [employer]MAN[employer] COMP, PT REPORTS HE HASN'T FILED YET AND DOESN'T HAVE INFORMATION, PT DINH HE CAN ASK [facility]O CM FOR ASSISTANCE WHEN HE HAS INFO. PT IS INDEP W/ALL CARE, DENIES USE OF DME/SERVICES, GOAL FOR DC IS HOME, PT VERIFIES PCP IS TEENA BARRON IN [place], PT VERIFIES HCP IS HOME (#ON FILE), COPY REQUESTED.
--- NOTE | 2024-06-12 13:47 | HO.PM.IMPN ---
Subjective Subjective Date of Service: 06/12/24 Review of Systems Follow up PNA, syncope feeling better, still congested Physical Exam Vital Signs: Vital Signs: Last Vital Signs Temp 98.8 F 06/12/24 11:37 Pulse 92 06/12/24 11:37 Resp 20 06/12/24 11:37 BP 131/78 06/12/24 11:37 Pulse Ox 95 06/12/24 11:37 O2 Del Method Room Air 06/12/24 11:37 O2 Flow Rate 3 06/12/24 07:23 BMI result Body Mass Index 33.1 Appearing in no acute distress lung sounds are clear to auscultation heart regular rate rhythm, clear S1, S2 positive bowel sounds, abdomen is soft, nontender neuro patient is alert x3, no focal deficits Objective Data Active Medications Acetaminophen (Acetaminophen 325 Mg Tablet) 650 mg PO Q6H PRN PRN Reason: Pain, Mild (Pain Scale 1-3), fever or headache Last Admin: 06/12/24 01:25 Dose: 650 mg Documented By: HAIDER Buprenorphine/Naloxone (Buprenorphine/Naloxone 8/2 Mg Film) 1 film SUBLINGUAL TID [facility] Last Admin: 06/12/24 09:20 Dose: 1 film Documented By: RENE Calcium Carbonate (Calcium Carbonate 750 Mg Tab.Chew) 750 mg PO Q4H PRN PRN Reason: Heartburn Ceftriaxone Sodium (Ceftriaxone Sodium 1 Gm Vial) 1 gm IVPUSH Q24H [facility] Last Admin: 06/12/24 09:20 Dose: 1 gm Documented By: RENE Heparin Sodium (Porcine) (Heparin Sodium,Porcine 5,000 Unit/Ml Vial) 5,000 unit SUBCUT Q12H [facility] Last Admin: 06/12/24 06:41 Dose: 5,000 unit Documented By: HAIDER Azithromycin 500 mg/ Sodium (Chloride) 250 mls @ 125 mls/hr IV Q24H [facility] Last Infusion: 06/11/24 20:32 Dose: Infused Documented By: IRIS Magnesium Hydroxide (Milk Of Magnesia 30 Ml Oral.Susp) 30 ml PO DAILY PRN PRN Reason: Constipation Melatonin (Melatonin 3 Mg Tablet) 6 mg PO BEDTIME PRN PRN Reason: Insomnia Sodium Chloride (0.9 % Sodium Chloride Flush 3 Ml Syringe) 3 ml IVFLUSH QSHIFT [facility] Last Admin: 06/12/24 09:21 Dose: 3 ml Documented By: RENE Sodium Chloride (0.9 % Sodium Chloride Flush 3 Ml Syringe) 3 ml IVFLUSH QSHIFT [facility] Last Admin: 06/12/24 09:27 Dose: 3 ml Documented By: RENE Labs 06/12/24 06:12 06/12/24 06:12 Labs: Laboratory Results - last 24 hr 06/12/24 06:12 MCV 82.9 MCH 28.1 MCHC 33.9 RDW 12.7 Plt Count 278 MPV 9.0 L Immature Gran % (Auto) 0.5 H Neut % (Auto) 65.7 Lymph % (Auto) 22.1 [place] % (Auto) 10.2 Eos % (Auto) 1.3 Baso % (Auto) 0.2 Lymph # (Auto) 1.9 [place] # (Auto) 0.9 Eos # (Auto) 0.1 Baso # (Auto) 0.0 Abs Immat Gran (auto) 0.04 H Absolute Neuts (auto) 5.5 Absolute Nucleated RBC 0.000 Nucleated RBC % (auto) 0.0 Anion Gap 16 Estim Creat Clear Calc 139.9 Estimated GFR > 60 Random Glucose 98 Calcium 8.9 D Total Bilirubin 0.3 AST 40 H ALT 19 Alkaline Phosphatase 63 Total Protein 7.9 Albumin 3.4 L Microbiology Microbiology Results: Microbiology 06/11/24 08:56 Blood Culture - Preliminary Blood - Venous No growth after 24 hours. 06/11/24 08:48 Blood Culture - Preliminary Blood - Venous No growth after 24 hours. Assessment and Plan (1) Pneumonia: Status: Acute Plan 43-year-old man admitted after multiple syncopal episodes at home and found to have sepsis secondary to pneumonia Sepsis secondary to multifocal pneumonia. sepsis resolved Fever, tachycardia, leukocytosis, normal lactic acid neg RSV, flu and covid Rocephin and azithromycin neg blood cultures Supplemental Oxygen to keep oxygen saturation greater than 91% Syncope Possibly related to infection, hypovolemia, hypotension Monitor on telemetry Ambulate with the assist Check orthostatic blood pressures Normocytic anemia No signs of bleeding Stable H&H Elevated D-dimer CTA ruled out pulmonary embolus Likely secondary to infection Obesity class 1. BMI 33.0. Discussed importance of weight management as this may be contributing to worsening of other comorbidities DVT prophylaxis with pneumatic compression boots Attending Dr. Montoya Full Code Quality Stroke Does the patient have a stroke diagnosis?: No VTE Prior VTE?: No VTE Risk Level:: Medical - moderate - high VTE Device Contraindication: Treatment Not Indicated VTE Drug Contraindication: N/A - Med Ordered
[2024-06-12] MEDS: Azithromycin 500 MG in 0.9 % Sodium Chloride 250 ML 250 MG IV (18:32)
[2024-06-13 03:47] VITALS: BP 111/64; PULSE 75; RESP 20; TEMP 36.6; O2SAT 98
[2024-06-13] MEDS: Heparin Sodium,Porcine 5,000 UNIT/ML VIAL 5000 UNIT SUBCUT (06:25)
[2024-06-13 07:42] VITALS: BP 106/64; PULSE 84; RESP 20; TEMP 36.5; O2SAT 93
[2024-06-13] MEDS: Acetaminophen 325 MG TABLET 650 MG PO (08:53)
[2024-06-13] MEDS: Buprenorphine/Naloxone 8/2 mg FILM 1 FILM SUBLINGUAL (08:54)
[2024-06-13] MEDS: cefTRIAXone sodium 1 GM VIAL IVPUSH (08:54)
[2024-06-13] MEDS: 0.9 % Sodium Chloride Flush 3 ML SYRINGE IVFLUSH ×2 (09:00→09:01)
--- NOTE | 2024-06-13 11:31 | PM.DS ---
DS: Providers Provider Date of Service: 06/13/24 Date of admission: 06/11/24 17:06 Date of discharge: 06/13/24 Primary care physician: Noelle Jang PA-C Attending physician on discharge: Julio Montoya Discharging clinician: Renetta Rodríguez DS: Diagnosis Discharge Diagnosis (1) Pneumonia: Status: Acute DS: Summary Hospital Course Hospital Course: From H&P on the day of admission 43-year-old man presented to the ER with 4 days of productive cough, fever, chills and multiple syncopal episodes. Apparently after a syncopal episode he struck his nose on a desk and the 2nd episode he fell to the ground while he was walking. Patient reports that he felt dizzy prior to both syncopal episodes. His significant other had a pneumonia diagnosed 2 weeks ago and completed their course of antibiotic. The patient did note that he was having more congestion over the last 4 days. The patient was noted to have a fever, tachycardia, leukocytosis, normal lactic acid. Chest CTA showed multifocal pneumonia with no pulmonary emboli. Head CT, cervical spine CT, face CT all negative for acute fracture dislocation. Patient received a dose of IV Rocephin, Tylenol, 1 L of IV fluid. He will be admitted for further management and treatment of sepsis secondary to pneumonia. Sepsis secondary to multifocal pneumonia. sepsis resolved Fever, tachycardia, leukocytosis resolved. normal lactic acid neg RSV, flu and covid Initially treated with IV Rocephin and azithromycin, we will transitioned to oral antibiotics upon discharge. Blood cultures have remained negative to date. Was weaned off of supplemental oxygen is currently saturating in the high 90s on room air. No shortness a breath with ambulation. Recommend outpatient follow-up imaging to ensure resolution Syncope Likely related to infection, reported decreased po intake for several days prior to presentation likely due to hypovolemia, hypotension. No adverse events on monitor. Dizziness has resolved, able to ambulate without dizziness or feeling lightheaded. Normocytic anemia No signs of bleeding Stable H&H. Outpatient follow-up with PCP Elevated D-dimer CTA ruled out pulmonary embolus. Likely secondary to infection Hypothyroidism Continue current dose of levothyroxine. Recommend outpatient thyroid check when recovered from current illness. Outpatient follow-up PCP recommended Time Attestation Discharge Coordination Time (in mins): 40 Quality: Safe Use of Opioids Does Pt have an Active Cancer Diagnosis on the Problem List?: No Quality: Stroke Does the patient have a stroke diagnosis?: No Physical Exam Vital Signs: Vital Signs: Last Vital Signs Temp 97.7 F 06/13/24 07:42 Pulse 84 06/13/24 07:42 Resp 20 06/13/24 07:42 BP 106/64 06/13/24 07:42 Pulse Ox 93 06/13/24 07:42 O2 Del Method Room Air 06/13/24 07:42 O2 Flow Rate 3 06/12/24 07:23 BMI result Body Mass Index 33.1 Const: General: cooperative, comfortable, no acute distress, alert and awake Nutritional Appearance: overweight Orientation/consciousness: patient oriented x3 Resp: Effort & Inspection: normal respiratory effort, able to speak in complete sentences, no respiratory distress and no use of accessory muscles Cardio: Rate: regular rate GI: Inspection: No distended Palpation (GI): Soft to palpation and nontender Neuro: General: patient oriented x3 and moves all extremities Extrem: General: Yes no pedal edema DS: Data Data Completed and Pending Labs on day of discharge: Preliminary micro results at discharge 06/11/24 08:56 Blood Culture - Preliminary Blood - Venous No growth after 48 hours. 06/11/24 08:48 Blood Culture - Preliminary Blood - Venous No growth after 48 hours. Discharge Plan Discharge Anticipated Discharge Date/Time: 06/13/24 11:38 Patient Disposition: Home, Self-Care Discharge Diagnosis: Sepsis due to multifocal pneumonia Referrals: Noelle Jang PA-C [Primary Care Provider] - 1 Week Discharge Medications: New azithromycin 250 mg tablet 250 mg PO DAILY 5 Days Qty: 5 0RF cefuroxime axetil 500 mg tablet 500 mg PO Q12H 5 Days Qty: 10 0RF Continued levothyroxine 150 mcg tablet 150 mcg PO DAILY@0600 buprenorphine-naloxone 8-2 mg film 1 film sublingual TID Discharge Orders: Discharge Order (Routine); Ordered 06/13/24 Ordered By: Renetta Rodríguez Activity on Discharge: As tolerated Stand Alone Forms: Patient Portal Discharge page Print Language: Lithuanian Care Plan Goals: See below Health Concerns: Multifocal pneumonia Syncope Plan of Treatment: Complete course of antibiotics as prescribed Recommend outpatient follow-up with PCP, call to schedule follow-up appointment Recommend outpatient follow-up chest x-ray to ensure resolution of infection TSH on low side recommend repeat thyroid function testing after recovery from acute illness Assessment: See discharge summary
[2024-06-13 11:33] VITALS: BP 112/60; PULSE 76
[2024-06-13 11:35] VITALS: BP 132/81; PULSE 92
[2024-06-13 11:36] VITALS: BP 120/79; PULSE 94
[2024-06-13 11:37] VITALS: BP 112/60; PULSE 76; RESP 20; TEMP 36.6; O2SAT 100
== END 2024-06-13 12:30 | disposition home or self-care (01) | DRG 871 ==
LOC: HO.ED 14:41 → HO.EDOVER 17:34 → HO.IMC 19:57
PROVIDERS: Physician Assistant Medical; Admitting Provider Nurse Practitioner Acute Care; Emergency Provider Emergency Medicine; PCP Physician Assistant Medical; Visit Provider Physician Assistant Medical
DX: A41.9 Sepsis, unspecified organism (principal); J18.9 Pneumonia, unspecified organism; F11.20 Opioid dependence, uncomplicated; D64.9 Anemia, unspecified; E89.0 Postprocedural hypothyroidism; I95.9 Hypotension, unspecified; E86.1 Hypovolemia; G47.33 Obstructive sleep apnea (adult) (pediatric); E66.811 Obesity, class 1; Z68.33 Body mass index [BMI] 33.0-33.9, adult; Z71.3 Dietary counseling and surveillance; Z20.822 Contact with and (suspected) exposure to COVID-19; Z79.890 Hormone replacement therapy; Z79.899 Other long term (current) drug therapy
CPT/HCPCS: 0241U; 36415; 70450; 70486; 71046; 71275; 72125; 80053; 82803; 82947; 83605; 84439; 84443; 85025; 85379; 87040; 93005; 99285; J0131; J0456; J0696; J1644; Q9967

== ENCOUNTER → 2024-06-11 09:56 | Outpatient (BNV) | payer OTHER, SELFPAY | PROVIDERS: Admitting Provider Nurse Practitioner Acute Care; Emergency Provider Emergency Medicine; Visit Provider Internal Medicine Cardiovascular Disease | DX: R00.0 Tachycardia, unspecified (principal) | CPT/HCPCS: 93010 ==

== ENCOUNTER → 2024-06-11 11:02 | Outpatient (BNV) | payer OTHER, SELFPAY | PROVIDERS: Emergency Provider Emergency Medicine; Visit Provider Radiology Diagnostic Radiology | DX: R55 Syncope and collapse (principal) | CPT/HCPCS: 71275 ==

== ENCOUNTER → 2024-06-11 17:06 | Outpatient (BNV) | payer OTHER, SELFPAY | PROVIDERS: Admitting Provider Nurse Practitioner Acute Care; Emergency Provider Emergency Medicine; PCP Physician Assistant Medical; Visit Provider Nurse Practitioner Acute Care | DX: A41.9 Sepsis, unspecified organism (principal); J18.9 Pneumonia, unspecified organism; R55 Syncope and collapse | CPT/HCPCS: 99223; 99232; 99239 ==